=== PATIENT | male | born 1975 | race American Indian/Alaskan Native ===

== ENCOUNTER 2018-09-03 19:45 | Emergency (ER) | payer BC ==
[2018-09-03] MEDS ORDERED: BENADRYL IV ONE (19:52)
[2018-09-03] MEDS ORDERED: DECADRON IV ONE (19:52)
[2018-09-03] MEDS ORDERED: PEPCID IV ONE (19:52)
[2018-09-03] MEDS ORDERED: NACL 0.9% 1000 ML 1,000 ML IV ONE (19:52)
--- NOTE | 2018-09-03 19:52 | Emergency Department Report ---
Blank Doc - Documentation Documentation: This is a 43-year-old male that presents with allergic reaction to shrimp. De nies SOB. Exam: no angioedema. Uvula midline. This initial assessment/diagnostic orders/clinical plan/treatment(s) is/are subject to change based on patient's health status, clinical progression and re- assessment by fellow clinical providers in the ED. Further treatment and workup at subsequent clinical providers discretion. Patient/guardians urged not to elope from the ED as their condition may be serious if not clinically assessed and managed. Initial orders include: 1- Patient sent to [facility] for further evaluation and treatment 2- treatment
--- NOTE | 2018-09-03 21:15 | Emergency Department Report ---
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 Patient states that he immediately took one tablet of Benadryl prior to arrival in the ED for severe itching that he was experiencing. Patient denies swollen lips or throat, swollen tongue, dysphagia, dysphonia, wheezing, cough, shortness of breath, nausea and vomiting or diarrhea, abdominal pain, fever or chills or swelling of face or eyes. MD Complaint: allergic reaction, hives -: Sudden, hour(s) (1) Time: 19:30 Exposure: food (seafood containing shrimps) Symptoms: rash, itching. denies: facial swelling, lip swelling, difficulty swallowing, difficulty breathing, orolingual swelling, hoarseness, dizziness, nausea, vomiting, abdominal pain Treatment Prior to Arrival: benadryl Previous Allergy History: other (known allergy to seafood and shrimps) - Related Data Previous Rx's Medication Instructions Recorded Last Taken Type Ranitidine HCl [Zantac] 150 mg PO Q12H #20 tablet 09/03/18 Unknown Rx diphenhydrAMINE [Benadryl CAP] 25 mg PO Q6HR PRN #30 capsule 09/03/18 Unknown Rx methylPREDNISolone [Medrol] 4 mg PO DAILY #21 tab.ds.pk 09/03/18 Unknown Rx Allergies Allergy/AdvReac Type Severity Reaction Status Date / Time shrimp Allergy Itching Verified 09/03/18 19:56 ED Review of Systems ROS: Stated complaint: ALLERGIC REACTION Other details as noted in HPI Comment: All other systems reviewed and negative Constitutional: no symptoms reported Eyes: as per HPI ENT: as per HPI Respiratory: no symptoms reported, see HPI Cardiovascular: as per HPI Endocrine: no symptoms reported, see HPI Gastrointestinal: as per HPI. denies: abdominal pain, nausea, vomiting, diarrhea Genitourinary: as per HPI Musculoskeletal: as per HPI Skin: rash, change in color, pruritus, other (diffuse erythematous maculopapular [place] had a rashes) Neurological: as per HPI Psychiatric: as per HPI Hematological/Lymphatic: as per HPI ED Past Medical Hx - Past Medical History Previous Medical History?: No - Surgical History Past Surgical History?: No - Social History Smoking Status: Never Smoker Substance Use Type: None - Medications Home Medications: Home Medications Medication Instructions Recorded Confirmed Last Taken Type Ranitidine HCl [Zantac] 150 mg PO Q12H #20 tablet 09/03/18 Unknown Rx diphenhydrAMINE [Benadryl CAP] 25 mg PO Q6HR PRN #30 capsule 09/03/18 Unknown Rx methylPREDNISolone [Medrol] 4 mg PO DAILY #21 tab.ds.pk 09/03/18 Unknown Rx ED Physical Exam - General Limitations: No Limitations General appearance: alert, in no apparent distress, other (groggy) - Head Head exam: Present: atraumatic, normocephalic, normal inspection - Eye Eye exam: Present: normal appearance, PERRL, EOMI Pupils: Present: normal accommodation - ENT ENT exam: Present: normal exam, normal orophraynx, mucous membranes moist, TM's normal bilaterally, normal external ear exam - Neck Neck exam: Present: normal inspection - Respiratory Respiratory exam: Present: normal lung sounds bilaterally. Absent: respiratory distress, wheezes - Cardiovascular Cardiovascular Exam: Present: normal rhythm, bradycardia, normal heart sounds - GI/Abdominal GI/Abdominal exam: Present: soft, normal bowel sounds. Absent: tenderness - Rectal Rectal exam: Present: deferred - Extremities Exam Extremities exam: Present: normal inspection, full ROM, normal capillary refill - Back Exam Back exam: Present: normal inspection, full ROM - Neurological Exam Neurological exam: Present: alert, oriented X3, CN II-XII intact, normal gait, reflexes normal - Psychiatric Psychiatric exam: Present: normal affect - Skin Skin exam: Present: dry, intact, rash, erythema, urticaria (diffuse erythematous maculopapular urticarial rashes) ED Course Vital Signs 09/03/18 19:50 Temperature 98 F Pulse Rate 59 L Respiratory 18 Rate Blood Pressure 156/78 O2 Sat by Pulse 100 Oximetry - Reevaluation(s) Reevaluation #1: 09/03/18 21:19 Patient was treated in the ED with Decadron, Benadryl and Pepcid in the ED. On reevaluation, the patient appears groggy and drowsy from treatment with antihistamines. Patient's vital signs are stable. Patient's itching and rash have since resolved. ED Medical Decision Making - Medical Decision Making Patient had presented to the ED after developing diffuse erythematous maculopapular urticarial rashes with severe pruritus after eating seafood for which he has had allergic reaction in the past. Patient took one tablet of Benadryl prior to arrival in the ED, and upon arrival patient was treated with Decadron 10 mg IV, Pepcid 20 mg IV and Benadryl 25 mg IV. On reevaluation, patient appears groggy and somnolent from the antihistamines used the ED to treat his acute allergic reaction. Patient's vital signs are stable. The itching and the rashes have resolved. Patient was discharged home on prescription of Benadryl, Zantac and steroid Dosepak for 6 days, and advised to follow up with his primary care physician in 2 days for reevaluation. Patient was advised to return to the ED immediately if symptoms get worse. - Differential Diagnosis Acute allergic reaction; Acute urticaria, Anaphylaxis Critical care attestation.: If time is entered above; I have spent that time in minutes in the direct care of this critically ill patient, excluding procedure time. ED Disposition Clinical Impression: Acute allergic reaction Qualifiers: Encounter type: initial encounter Qualified Code(s): T78.40XA - Allergy, unspecified, initial encounter Disposition: DC-01 TO HOME OR SELFCARE Is pt being admited?: No Does the pt Need Aspirin: No Condition: Stable Instructions: Food Allergy (ED), Urticaria (ED), Itchy Skin (ED) Additional Instructions: Follow up with your Primary Care Physician in 24-48 hours for reevaluation. Return to the ED immediately if symptoms get worse. Prescriptions: diphenhydrAMINE [Benadryl CAP] 25 mg PO Q6HR PRN #30 capsule PRN Reason: Allergy Symptoms methylPREDNISolone [Medrol] 4 mg PO DAILY #21 tab.ds.pk Ranitidine HCl [Zantac] 150 mg PO Q12H #20 tablet [facility] [Primary Care Provider] - 3-5 Days Time of Disposition: 21:29 Print Language: SWISS
[2018-09-03 21:48] VITALS: BP 101/74
== END 2018-09-03 21:47 | disposition home or self-care (01) ==
LOC: ED 19:45
DX: T78.40XA Allergy, unspecified, initial encounter (principal); Y92.89 Other specified places as the place of occurrence of the external cause
CPT/HCPCS: 96374; 96375; 99282; J1100; J1200; J7030